=== PATIENT | male | born 1995 | race Caucasian/White ===

== ENCOUNTER 2020-05-16 06:08 | Emergency (ER) | payer OTHER ==
[2020-05-16] MEDS ORDERED: VOLTAREN **OUT50 MG PO (07:22)
== END 2020-05-16 07:25 | disposition home or self-care (01) ==
LOC: FER 06:08
DX: S30.0XXA Contusion of lower back and pelvis, initial encounter (principal); R11.0 Nausea; Z88.0 Allergy status to penicillin; V00.311A Fall from snowboard, initial encounter; Y93.23 Activity, snow (alpine) (downhill) skiing, snowboarding, sledding, tobogganing and snow tubing
CPT/HCPCS: 72220; J1885